=== PATIENT | female | born 1960 | race Caucasian/White ===

== ENCOUNTER 2018-09-18 10:30 | Day surgery (SDC) | payer MEDICAID ==
[2018-09-18] VITALS (10 sets, daily range): BP systolic 114–139; BP diastolic 77–90; PULSE 63–70; RESP 10–18; Ht 167.6 cm; Wt 66.0 kg
[~2018-09-18] VITALS: Ht 167.6 cm; Wt 66.0 kg
[2018-09-18] MEDS ORDERED: LACTATED RINGER'S 1,000 ML IV SCH (12:00)
[2018-09-18] MEDS ORDERED: POLYMYXIN/BACITRACIN 1L IRRIG IRR ONE (12:00)
[2018-09-18] MEDS ORDERED: LIDOCAINE 2% (SDV) 5 ML INJ ONE (12:11)
[2018-09-18] MEDS ORDERED: CEFAZOLIN 1 GM INJ ONE (12:11)
[2018-09-18] MEDS ORDERED: FENTAnyl 50 MCG/ML VIAL ONE (12:11)
[2018-09-18] MEDS ORDERED: PROPOFOL 60 ML ONE (12:11)
[2018-09-18] MEDS ORDERED: MIDAZOLAM 1 MG/ML 2 ML INJ ONE ×2 (12:11)
[2018-09-18] MEDS ORDERED: HEPARIN 1000 UNITS/ML 10 ML INJ ONE (12:22)
[2018-09-18] MEDS ORDERED: LIDOCAINE 1%/EPI (1:100,000) (MDV) 20 ML ONE (12:25)
[2018-09-18] MEDS ORDERED: CEFAZOLIN 1 GM/50 ML (PMX) 0 ML IVPB ONE (12:46)
[2018-09-18] MEDS ORDERED: CEFAZOLIN 2 GM/50 ML (PMX) 50 ML IVPB ONE (12:46)
[2018-09-18] MEDS ORDERED: PROPOFOL 20 ML ONE (13:02)
--- NOTE | 2018-09-18 14:18 | PREAC ---
Date/Time of Note Date/Time of Note DATE: 09/18/18 TIME: 14:17 Anesthesia Eval and Record Evaluation Time Pre-Procedure Interview DATE: 09/18/18 TIME: 14:17 Age 58 Sex female NPO: 8 hrs Preoperative diagnosis Breast CA Planned procedure Portacath insertion Past Medical History Past Medical History: Includes (Breast CA) Pulm: Smoking Hx Surgery & Anesthesia Issues No known issue Meds Anticoagulation: No Beta Rush within 24 hr: No Reason Beta Rush not given: Pt. not on B-Rush No Active Prescriptions or Reported Meds Current Medications Lactated Ringer's 1,000 ml @ 50 mls/hr Q20H IV Last administered on 09/18/18at 12:23; Admin Dose 50 MLS/HR; Start 09/18/18 at 12:00 Meds reviewed: Yes Allergies Coded Allergies: No Known Allergy (Unverified , 09/18/18) Allergies Reviewed: Yes Labs/Studies Labs Reviewed: Reviewed by anesthesiologist test: N/A Pre-procedure Exam Last vitals Vital Signs Date Temp Pulse Resp B/P (MAP) Pulse Ox O2 O2 Flow FiO2 Time Delivery Rate 09/18/18 98.1 69 12:09 09/18/18 16 138/90 98 Room Air 12:00 (106) Airway: Adequate mouth opening, Adequate thyromental dist Mallampati: Mallampati II Teeth: Normal Lung: Normal Heart: Normal ASA Physical Status ASA physical status: 2 Emergency: None Planned Anesthetic General/MAC: MAC Pre-operative Attestations Prior to commencing anesthesia and surgery, the patient was re-evaluated, there was verification of: *The patient's identity *The results of appropriate recent lab work and preoperative vital signs *The above evaluation not changing prior to induction *Anesthetic plan, risk benefits, alternative and complications discussed with patient/family; questions answered; patient/family understands, accepts and wishes to proceed. PITER LOVE Sep 18, 2018 14:18
--- NOTE | 2018-09-18 14:20 | PAC ---
Date/Time of Note Date/Time of Note DATE: 09/18/18 TIME: 14:19 Post-Anesthesia Notes Post-Anesthesia Note Last documented vital signs Vital Signs Date Temp Pulse Resp B/P (MAP) Pulse Ox O2 O2 Flow FiO2 Time Delivery Rate 09/18/18 98.1 69 12:09 09/18/18 98 72 16 16 138/90 98 100 Room 12:00 1413 (106) 129/ Air RA 77 Activity: WNL Respiratory function: WNL Cardiovascular function: WNL Mental status: Baseline Pain reasonably controlled: Yes Hydration appropriate: Yes Nausea/Vomiting absent: Yes PITER LOVE Sep 18, 2018 14:20
[2018-09-18] MEDS ORDERED: MEPERIDINE 25 MG INJ IV PRN (14:30)
[2018-09-18] MEDS ORDERED: OXYCODONE/ACETAMINOPHEN (5/325) TAB PO PRN ×2 (14:30)
[2018-09-18] MEDS ORDERED: ALBUTEROL 0.083% (NEB) 2.5 MG/3 ML AMP HHN PRN (14:30)
[2018-09-18] MEDS ORDERED: LABETALOL HCL 20MG INJ IV PRN (14:30)
[2018-09-18] MEDS ORDERED: DIPHENHYDRAMINE 50 MG INJ IV PRN (14:30)
[2018-09-18] MEDS ORDERED: HYDROmorphONE 1 MG/5 ML IV SYRINGE IV PRN ×3 (14:30)
[2018-09-18] MEDS ORDERED: morphine 2 MG INJ IV PRN ×2 (14:30)
[2018-09-18] MEDS ORDERED: ONDANSETRON 4 MG INJ IV PRN (14:30)
[2018-09-18] MEDS ORDERED: FENTAnyl 50 MCG/ML VIAL IV PRN ×2 (14:30)
--- NOTE | 2018-09-21 23:33 | HPN ---
Date/Time of Note Date/Time of Note DATE: 09/21/18 TIME: 23:32 Interval H&P Admission Note Pt. seen H&P reviewed: No system changes MOR DIA MD Sep 21, 2018 23:33
== END 2018-09-18 16:35 | disposition home or self-care (01) ==
LOC: SDS 10:30
PROVIDERS: ATTEND Internal Medicine Hematology & Oncology
DX: C50.911 Malignant neoplasm of unspecified site of right female breast (principal); Z17.1 Estrogen receptor negative status [ER-]
CPT/HCPCS: 36561; 76937; 76942; C1788; J0690; J1644; J2250; J3010; Z7610